=== PATIENT | female | born 1965 | race Two or more races ===

== ENCOUNTER 2023-11-15 11:43 | Emergency (ER) | payer OTHER, SELFPAY ==
[2023-11-15 12:23] VITALS: BP 150/82; PULSE 73; RESP 18; TEMP 37; O2SAT 94; BMI 33.1
--- NOTE | 2023-11-15 13:33 | CT_ITS ---
Patient: FREDDY CALLAHAN Facility:?[facility] Patient ID:?[id number] Site Patient ID:?[id number]. Site :?[id number] Study:?CT-Abdomen/Pelvis WITHOUT-11/15/2023 3:03:38 PM Ordering Physician:?DR. MONTEZ Final Report: INDICATION: Epigastric pain and vomiting TECHNIQUE: Axial images were obtained from the diaphragm to the pubic symphysis. Reformats were obtained in the coronal and sagittal plane. IV Contrast: None Oral Contrast: None COMPARISON: None. FINDINGS: Lower chest: Basilar discoid atelectasis with [id number] coronary atherosclerosis. Liver: Unremarkable. Normal in size and attenuation. No masses. Gallbladder and bile ducts: Status post cholecystectomy. Spleen: Unremarkable. Normal in size without mass. Pancreas: Mild pancreatic atrophy. Adrenal glands: Slight fusiform enlargement of the anterior limb of left adrenal gland. Kidneys: Bilateral renal cortical atrophy without hydronephrosis. Left renal cyst measuring 9 millimeters. Vasculature: Atherosclerosis without abdominal aortic aneurysm. GI tract: The stomach is unremarkable. No dilated loops of large or small intestine. Colonic diverticulosis. Normal appendix. Pelvis: Unremarkable. Bones: Old T12 compression fracture. IMPRESSION: 1. No dilated bowel or localized inflammation. 2. Colonic diverticulosis. 3. Bilateral renal cortical atrophy. Please note that all CT scans at this facility use dose modulation, iterative reconstruction, and/or weight-based dosing when appropriate to reduce radiation dose to as low as reasonably achievable. Dictated by Good Rubin MD @ 11/15/2023 3:17:57 PM Signed by:?Good Rubin MD @11/15/2023 3:17:57 PM (Electronic Signature)
--- NOTE | 2023-11-15 13:35 | ED.WEAKNESS ---
HPI - Weakness General Chief complaint: Weakness Stated complaint: weakness/cough Time Seen by Provider: 11/15/23 13:26 History of Present Illness HPI Narrative: This patient is a 4-year-old female who is legally blind and is on dialysis. Her dialysis today was cut short by 1 hour because of generalized weakness. She is reporting abdominal pain for the past 2 or 3 weeks and has recurrent vomiting episodes with nausea. She does not report any fevers. She does have a cough. Related Data Previous Rx's Medication Instructions Recorded ondansetron HCl 4 mg tablet 4 mg PO Q6H #15 tabs 11/15/23 tramadol 50 mg tablet 50 mg PO Q6H PRN pain #10 tabs 11/15/23 Allergies Allergy/AdvReac Type Severity Reaction Status Date / Time aspirin AdvReac other Verified 11/15/23 12:22 Review of Systems Status of ROS: Reports: 10 or more systems reviewed and unremarkable except as noted in History and below Narrative: Constitutional: No fevers, no weight gain or loss. Eyes: No discharge. No vision changes. HENT: No congestion, no sore throat, no ear pain. Cardiovascular: No chest pain, no palpitations. Respiratory: No shortness of breath, no wheezes. She reports a cough. Gastrointestinal: Upper epigastric abdominal pain with nausea and vomiting. Genitourinary: On dialysis. Musculoskeletal: Normal range of motion. Skin: No rashes, no pruritis. Neurological: No dizziness, weakness, sensory change, speech change. Endo/Heme/Allergies: No bruising or bleeding. No polydipsia. Pysch: no suicidality, no anxiety, no insomnia. All other systems reviewed and are negative. [facility] Social History Smoking Status: Never smoker How often do you have a drink containing alcohol: never AUDIT-C Alcohol total score: 0 Non-prescribed substance use: denies use Exam Narrative: Exam Narrative: Constitutional: Well-developed, well-nourished, no acute distress. HEENT: Normocephalic, atraumatic. Neck: Normal range of motion. Nontender. Supple. Heart: Regular. No murmurs. Normal rate. Intact distal pulses. Lungs: Clear to auscultation. No chest discomfort. No wheezes, rhonchi, or rales. Abdomen: Normal bowel sounds. Nontender. No rebound tenderness. Genitalia: Deferred. Back: No midline tenderness. Normal range of motion. Extremities: Normal range of motion. No injury. Skin: Intact. No rash. Warm. No erythema or pallor. Neurologic: No altered sensation. No weakness. Alert and oriented. Psychiatric: No suicidality. No anxiety or depression. No insomnia. Nursing notes and vitals signs are reviewed. Const: Vital Signs, click to edit/add: Vital Signs - 24 hr 11/15/23 12:23 Temperature 98.6 F Pulse Rate [Pulse Oximeter] 73 Respiratory Rate 18 Blood Pressure [Ri ght Upper Arm] 150/82 H Pulse Oximetry 94 Oxygen Delivery Me thod Room Air Course Vital Signs Vital signs: Initial Vital Signs Temperature 98.6 F 11/15/23 12:23 Temperature Source Temporal Artery Scan 11/15/23 12:23 Pulse Rate 73 11/15/23 12:23 Respiratory Rate 18 11/15/23 12:23 Blood Pressure 150/82 H 11/15/23 12:23 Blood Pressure Mean 104 11/15/23 12:23 Pulse Oximetry 94 11/15/23 12:23 Oxygen Delivery Method Room Air 11/15/23 12:23 Vital Signs Temperature 98.6 F 11/15/23 12:23 Pulse Rate 73 11/15/23 12:23 Respiratory Rate 18 11/15/23 12:23 Blood Pressure 150/82 H 11/15/23 12:23 Pulse Oximetry 94 11/15/23 12:23 Oxygen Delivery Method Room Air 11/15/23 12:23 Temperature 98.6 F 11/15/23 12:23 Pulse Rate 73 11/15/23 12:23 Respiratory Rate 18 11/15/23 12:23 Blood Pressure 150/82 H 11/15/23 12:23 Pulse Oximetry 94 11/15/23 12:23 Oxygen Delivery Method Room Air 11/15/23 12:23 Medications Administered Medications: Discontinued Medications Generic Name Dose Route Start Last Admin Trade Name Freq PRN Reason Stop Dose Admin Ketorolac Tromethamine 15 mg 11/15/23 13:32 11/15/23 14:30 Ketorolac 30 Mg/Ml Inj IVP 11/15/23 13:33 15 mg ONCE ONE Administration Ondansetron HCl 4 mg 11/15/23 13:32 11/15/23 14:30 Ondansetron 2 Mg/Ml Inj IVP 11/15/23 13:33 4 mg ONCE ONE Administration MDM - Weakness MDM Narrative Medical decision making narrative: This patient comes in reporting some weakness and has abdominal pain with episodes of vomiting and diarrhea. She is a dialysis patient. She arrives here with normal vital signs. An IV was established where she received 500 mL of normal saline, Zofran. Labs are acquired along with a CT scan of her abdomen and pelvis. These returned with reassuring findings. She does have renal failure so her creatinine and BUN of course are not normal. She is okay to be discharged home to resume current plans for dialysis. I did provide prescription for Zofran and some tablets of tramadol. Lab Data Labs: Lab Results 11/15/23 Range/Units 14:15 WBC 12.26 H (4.50-11.00) K/uL RBC 4.35 (4.00-5.20) m/uL Hgb 13.1 (12.0-16.0) gm/dL Hct 40.9 (33.0-51.0) % MCV 94 (80-100) fL MCH 30 (26-34) pg MCHC 32 (32-36) gm/dL RDW Coeff of Eusebio 13.7 (11.5-15.5) % Plt Count 180 (140-440) K/uL Neut % (Auto) 85.4 H (42.0-72.0) % Lymph % (Auto) 6.8 L (20-44) % [place] % (Auto) 4.1 (0.0-11.0) % Eos % (Auto) 3.1 (0.0-7.0) % Baso % (Auto) 0.4 (0.0-3.0) % Neut # (Auto) 10.50 H (1.7-7.0) K/uL Lymph # (Auto) 0.80 L (0.90-2.90) K/uL [place] # (Auto) 0.50 (0.00-0.90) K/UL Eos # (Auto) 0.40 (0.00-0.50) K/uL Baso # (Auto) 0.00 (0.00-0.30) K/uL Abs Immat Gran (auto) 0.00 (0.00-0.30) K/uL Imm/Tot Granulo (auto) 0.2 % Sodium 136 (135-149) mmol/L Potassium 3.8 (3.6-5.1) mmol/L Chloride 99 (96-114) mmol/L Carbon Dioxide 27 (20-32) mmol/L Anion Gap 10 (7-15) mEq/L BUN 45 H (7-30) mg/dL Creatinine 5.2 H (0.5-1.5) mg/dL Estimated Creat Clear 9.10 Estimated GFR 9 ml/min Glucose 162 H (60-115) mg/dL Calcium 9.1 (8.4-10.6) mg/dL Imaging Data CT scan - abdomen: Radiologist's impression: 1. No dilated bowel or localized inflammation. 2. Colonic diverticulosis. 3. Bilateral renal cortical atrophy. Discharge Plan Discharge Clinical Impression: Gastroenteritis, Weakness Patient Disposition: Home, Self-Care Condition: Stable Additional Instructions: Which take medication as needed and directed. Continue current plans. Follow up with MD return if worsening. Prescriptions: New ondansetron HCl 4 mg tablet 4 mg PO Q6H Qty: 15 0RF tramadol 50 mg tablet 50 mg PO Q6H PRN (Reason: pain) Qty: 10 0RF Follow Up/Referrals: Provider,Not a Local [Primary Care Provider] - Stand Alone Forms: [employer] Info Instructions
[2023-11-15] MEDS: KETOROLAC 30 MG/ML inj 15 MG IVP (14:30)
[2023-11-15] MEDS: ONDANSETRON 2 MG/ML inj 4 MG IVP (14:30)
[2023-11-15 14:32] LABS: Basophils Percent Auto 0.4 % (0.0-3.0); Eosinophils Percent Auto 3.1 % (0.0-7.0); Hematocrit 40.9 % (33.0-51.0); Hemoglobin* 13.1 gm/dL (12.0-16.0); Immature Granulocytes Pct Auto 0.2 %; Lymphocytes Percent Auto 6.8 % (20-44); Mean Corpuscular HGB Conc 32 gm/dL (32-36); Mean Corpuscular Hemoglobin 30 pg (26-34); Mean Corpuscular Volume 94 fL (80-100); Monocytes Percent Auto 4.1 % (0.0-11.0); Neutrophils Percent Auto 85.4 % (42.0-72.0); Platelet Count* 180 K/uL (140-440); RDW Coefficient of Variation % 13.7 % (11.5-15.5); Red Blood Count 4.35 m/uL (4.00-5.20); White Blood Count* 12.26 K/uL (4.50-11.00)
[2023-11-15 14:44] LABS: Slide Review Reflex No
[2023-11-15 14:57] LABS: Chloride* 99 mmol/L (96-114); Sodium* 136 mmol/L (135-149)
[2023-11-15 14:58] LABS: Potassium* 3.8 mmol/L (3.6-5.1)
[2023-11-15 15:00] LABS: Anion Gap 10 mEq/L (7-15); Carbon Dioxide* 27 mmol/L (20-32); Creatinine* 5.2 mg/dL (0.5-1.5); Estimated Glomerular Filt Rate 9 ml/min
[2023-11-15 15:01] LABS: Blood Urea Nitrogen* 45 mg/dL (7-30); Calcium* 9.1 mg/dL (8.4-10.6); Glucose* 162 mg/dL (60-115)
[2023-11-15 16:41] VITALS: BP 129/71; PULSE 99; RESP 18; O2SAT 99
== END 2023-11-15 17:13 | disposition home or self-care (01) ==
PROVIDERS: Emergency Provider Emergency Medicine Emergency Medical Services
DX: K52.9 Noninfective gastroenteritis and colitis, unspecified (principal); R53.1 Weakness
CPT/HCPCS: 36415; 74176; 80048; 85025; 96374; 96375; 99284; J1885; J2405